=== PATIENT | female | born 1970 | race Caucasian/White ===

== ENCOUNTER → 2017-06-21 | Outpatient (CLI) | payer MEDICARE | END | disposition home or self-care (01) | LOC: CFH 07:07 | PROVIDERS: ATTEND Nurse Practitioner Family | DX: Z12.31 Encounter for screening mammogram for malignant neoplasm of breast (principal); Z00.01 Encounter for general adult medical examination with abnormal findings; I51.9 Heart disease, unspecified; G90.1 Familial dysautonomia [Riley-Day] | CPT/HCPCS: G0202 ==

== ENCOUNTER → 2017-11-28 | Outpatient (CLI) | payer MEDICARE | END | disposition home or self-care (01) | LOC: CVU 09:36 | PROVIDERS: ATTEND Internal Medicine Cardiovascular Disease | DX: R07.89 Other chest pain (principal); R00.2 Palpitations; Z86.73 Personal history of transient ischemic attack (TIA), and cerebral infarction without residual deficits; Z87.891 Personal history of nicotine dependence | CPT/HCPCS: 93306 ==

== ENCOUNTER → 2017-12-06 | Outpatient (CLI) | payer MEDICARE | END | disposition home or self-care (01) | LOC: CFH 10:48 | PROVIDERS: ATTEND Internal Medicine Cardiovascular Disease | DX: R06.02 Shortness of breath (principal) | CPT/HCPCS: 71046 ==

== ENCOUNTER 2019-03-03 08:49 | Emergency (ER) | payer MEDICARE ==
[~2019-03-03] VITALS: Ht 170.2 cm; Wt 104.4 kg
[2019-03-03 08:54] VITALS: BP 155/86
[2019-03-03] MEDS ORDERED: HYDR1TAB14 PO (09:06)
--- NOTE | 2019-03-03 09:06 | NUR ---
THIS IS A 49 YEAR OLD FEMALE WHO C/O OF 10 LEFT SHOULDER PAIN. PAIN MEDICATION VICODIN THIS AM HAS NOT HELPED.
[2019-03-03] MEDS ORDERED: DIAZEPAM 5 MG TABLET ONE (09:18)
[2019-03-03] MEDS ORDERED: KETOROLAC 30 MG/1 ML ONE (09:18)
--- NOTE | 2019-03-03 09:26 | NUR ---
MEDICATED PER ORDERS FOR LEFT SHOULDER PAIN
[2019-03-03] MEDS ORDERED: KETOROLAC 30 MG/1 ML IM ONE (09:30)
[2019-03-03] MEDS ORDERED: DIAZEPAM 5 MG TABLET PO ONE (09:30)
--- NOTE | 2019-03-03 10:14 | NUR ---
Patient/Caregiver given discharge instructions and they have confirmed that they understand the instructions. Patient ambulatory with steady gait.
== END 2019-03-03 10:16 | disposition home or self-care (01) ==
LOC: ED 10:15
DX: S16.1XXA Strain of muscle, fascia and tendon at neck level, initial encounter (principal); M25.512 Pain in left shoulder; F17.200 Nicotine dependence, unspecified, uncomplicated; X58.XXXA Exposure to other specified factors, initial encounter; Y93.89 Activity, other specified; Y92.410 Unspecified street and highway as the place of occurrence of the external cause; Y99.8 Other external cause status
CPT/HCPCS: 96372; 99283; J1885

== ENCOUNTER 2019-12-27 08:27 | Emergency (ER) | payer MEDICARE ==
[~2019-12-27] VITALS: Ht 170.2 cm; Wt 114.2 kg
[~2019-12-27 08:27] MED LIST: HYDR1TAB15 PO
[2019-12-27] MEDS ORDERED: METF500T17 PO (08:46)
[2019-12-27] MEDS ORDERED: LOVA10TA PO (08:46)
--- NOTE | 2019-12-27 09:01 | NUR ---
REPORT RECEIVED FROM SONIA MAYERS. CARE ASSUMED. PT RESTING ON GURNEY, IN FULL MONITOR AND DRESSED IN GOWN. PT AAO X 4, ROOM AIR, NAD, EVEN RISE AND FALL OF CHEST. SIDERAIL X [address]. PT HERE WITH C/O COUGH X 1 MONTH AND VOMITTING X 1 WEEK. PT DENIES FEVERS/CHILLS/DIARRHEA. CALL LIGHT WITHIN REACH.
--- NOTE | 2019-12-27 09:08 | NUR ---
AT BEDSIDE FOR EXAM.
--- NOTE | 2019-12-27 09:18 | NUR ---
XRAY AT BEDSIDE.
--- NOTE | 2019-12-27 09:24 | NUR ---
LAB AT BEDSIDE.
[2019-12-27 09:55] VITALS: BP 110/53
--- NOTE | 2019-12-27 09:55 | NUR ---
PT ASLEEP ON GURNEY, ON MONITOR, EVEN RISE AND FALL OF CHEST, CALL LIGHT WITHIN REACH.
[2019-12-27 09:58] LABS: BASOPHILS # (AUTO) 0.03 x10^3/uL (0-0.1); BASOPHILS % (AUTO) 0 % (0-1); EOSINOPHILS # (AUTO) 0.14 x10^3/uL (0-0.4); EOSINOPHILS % (AUTO) 1 % (1-7); LYMPHOCYTES # (AUTO) 2.32 x10^3/uL (1-3.4); LYMPHOCYTES % (AUTO) 21 % (22-44); MD NO; MEAN CORPUSCULAR HEMOGLOBIN 29.6 pg (27.0-34.8); MEAN CORPUSCULAR HGB CONC 33.2 g/dL (32.4-35.8); MEAN CORPUSCULAR VOLUME 89.1 fL (80-100); MEAN PLATELET VOLUME 8.7 fL (7.4-10.4); MONOCYTES # (AUTO) 0.47 x10^3/uL (0.2-0.8); MONOCYTES % (AUTO) 4 % (2-9); NEUTROPHILS # (AUTO) 8.19 x10^3/uL (1.8-6.8); NEUTROPHILS % (AUTO) 73 % (42-75); PLATELET COUNT 294 x10^3/uL (130-400); RED CELL DISTRIBUTION WIDTH 15.8 % (9.6-15.2)
[2019-12-27 10:01] LABS: ALANINE AMINOTRANSFERASE 28 U/L (12-78); ALBUMIN 3.3 g/dL (3.4-5.0); ANION GAP 5 mmol/L (5-15); CALCIUM 8.1 mg/dL (8.5-10.1); CHLORIDE 109 mmol/L (98-107)
[2019-12-27 10:06] LABS: ALKALINE PHOSPHATASE 91 U/L (45-117); BILIRUBIN,TOTAL 0.2 mg/dL (0.2-1.0); TOTAL PROTEIN 6.7 g/dL (6.4-8.2); TROPONIN I < 0.015 ng/mL (0.000-0.045)
--- NOTE | 2019-12-27 10:16 | NUR ---
ALL RESULTS BACK AT THIS TIME, CHART UP FOR RECHECK.
--- NOTE | 2019-12-27 10:42 | NUR ---
PT AMBULATORY TO RESTROOM WITH STEADY GAIT.
--- NOTE | 2019-12-27 11:11 | NUR ---
Patient/Caregiver given discharge instructions and they have confirmed that they understand the instructions. Patient ambulatory with steady gait.
--- NOTE | 2019-12-27 11:15 | NUR ---
Jim RN: Patient given discharge instructions and they have confirmed that they understand the instructions. Patient ambulatory with steady gait.
== END 2019-12-27 11:17 | disposition home or self-care (01) ==
LOC: ED 09:01
DX: R06.00 Dyspnea, unspecified (principal); E83.42 Hypomagnesemia; R61 Generalized hyperhidrosis; R00.2 Palpitations; R07.9 Chest pain, unspecified; F17.200 Nicotine dependence, unspecified, uncomplicated
CPT/HCPCS: 36415; 71045; 80053; 83735; 84443; 84484; 85025; 93005; 99285